=== PATIENT | male | born 1970 | race Caucasian/White ===

== ENCOUNTER 2018-08-25 20:18 | Emergency (ER) | payer OTHER ==
--- NOTE | 2018-08-25 20:26 | PDOC ---
Rapid Medical Evaluation Time Seen by Provider: 08/25/18 20:23 Medical Evaluation: Allergies Allergy/AdvReac Type Severity Reaction Status Date / Time No Known Allergies Allergy Verified 10/20/14 19:45 08/25/18 20:23 I have performed a brief in-person evaluation of this patient. The patient presents with a chief complaint of: Low back pain radiating to leg x 2 months Pertinent physical exam findings:stable I have ordered the following:nothing The patient will proceed to the ED for further evaluation. Discharge Disposition - Diagnosis Lower back pain Qualifiers: Chronicity: unspecified Back pain laterality: unspecified Sciatica presence: unspecified whether sciatica present Qualified Code(s): M54.5 - Low back pain - Referrals - Patient Instructions - Post Discharge Activity
[2018-08-25 20:28] VITALS: BP 147/82; PULSE 77; TEMP 98.4; BMI 27.0
[2018-08-25] MEDS ORDERED: KETOROLAC TROMETHAMINE 60 MG/2 ML VIAL IM ONE (21:46)
[2018-08-25] MEDS ORDERED: KETOROLAC TROMETHAMINE 60 MG/2 ML VIAL ONE (21:50)
--- NOTE | 2018-08-25 21:54 | PDOC ---
History of Present Illness - General Chief Complaint: Pain, Acute Stated Complaint: LEG PAIN Time Seen by Provider: 08/25/18 20:23 History Source: Patient - History of Present Illness Initial Comments: 08/25/18 21:47 Chief complaint: Leg pain Patient is a 47-year-old male with history of hypertension which she states control, not taking his blood pressure medicine as 2 months of back and leg pain. Patient states originally the pain was in his back and the back of his leg , pain now has extended into his groin and pain goes down into his toe, he has some numbness to the toe, but he is also complaining of calf pain. Patient has no shortness of breath or chest pain. Patient was seen at [facility] one month ago but denies having any workup or imaging. Patient did not follow-up with specialist. GENERAL/CONSTITUTIONAL: No fever, weakness. dizziness HEAD, EYES, EARS, NOSE AND THROAT: No change in vision. No ear pain or discharge. No sore throat. CARDIOVASCULAR: No chest pain RESPIRATORY: No shortness of breath or cough GASTROINTESTINAL: No pain, nausea, vomiting, diarrhea or constipation GENITOURINARY: No dysuria MUSCULOSKELETAL: No neck, + back pain SKIN: No rash NEUROLOGIC: No headache, vertigo, loss of consciousness, + decrease sensation to right great toe GENERAL: The patient is awake, alert, and fully oriented, in no acute distress. HEAD: Normal with no signs of trauma. EYES: Pupils equal, round and reactive to light, sclera anicteric, conjunctiva clear. ENT: pharynx: no erythema, no exudate, uvula midline NECK: supple CHEST: clear, nontender, rr ABD: soft, nontender BACK: no tenderness or signs of injury EXTREMITIES: Lower extremity Tenderness in the thigh, calf, to dorsi flex and plantar flexion, decreased sensation to the great toe. rest of extremities, Normal range of motion, no edema. NEUROLOGICAL: Normal speech, Cranial nerves II through XII grossly intact, no gross focal abnormalities, except decreased sensation in the right great toe SKIN: Warm, Dry Past History - Past Medical History Allergies/Adverse Reactions: Allergies Allergy/AdvReac Type Severity Reaction Status Date / Time No Known Allergies Allergy Verified 10/20/14 19:45 Home Medications: Ambulatory Orders NK [No Known Home Medication] 10/20/14 COPD: No HTN: Yes Hypercholesterolemia: Yes - Suicide/Smoking/Psychosocial Hx Smoking History: Former smoker Have you smoked in the past 12 months: No Number of Cigarettes Smoked Daily: 0 If you are a former smoker, when did you quit?: 20 yrs Information on smoking cessation initiated: No Hx Alcohol Use: No Drug/Substance Use Hx: No Substance Use Type: None *Physical Exam - Vital Signs Last Vital Signs Temp Pulse Resp BP Pulse Ox 98.4 F 77 19 147/82 10 L 08/25/18 20:24 08/25/18 20:24 08/25/18 20:24 08/25/18 20:24 08/25/18 20:24 ED Treatment Course - RADIOLOGY Radiology Studies Ordered: Category Date Time Status LUMBAR SPINE CT W/O CONTRAST [CT] Stat CT Scan 08/25/18 21:46 Ordered DUPLEX VASCUL US-1 LEG [US] Stat Ultrasound 08/25/18 21:42 Ordered Medical Decision Making - Medical Decision Making 08/25/18 21:54 47-year-old male with history of hypertension with 2 months of back pain and leg pain to the right lower extremity. Prior visit 1 month ago with no imaging. Given worsening of pain to the leg, thigh and calf, will get ultrasound, we will give Toradol, will get CT lumbar spine and reassess. Patient will be signed out to CHRISTINA Jeong 08/25/18 22:49 us negative for dvt. CHRISTINA Jeong aware. pt signed over to her for review of ct scan , reassessment, pain management and disposition *DC/Admit/Observation/Transfer Diagnosis at time of Disposition: Lower back pain Qualifiers: Chronicity: unspecified Back pain laterality: unspecified Sciatica presence: unspecified whether sciatica present Qualified Code(s): M54.5 - Low back pain - Referrals - Patient Instructions - Post Discharge Activity
--- NOTE | 2018-08-25 22:40 | PDOC ---
*Physical Exam - Vital Signs Last Vital Signs Temp Pulse Resp BP Pulse Ox 98.4 F 77 19 147/82 10 L 08/25/18 20:24 08/25/18 20:24 08/25/18 20:24 08/25/18 20:24 08/25/18 20:24 - Physical Exam Comments: 08/25/18 23:33 Sign-out received from outgoing ER provider Jeanette. Pt interviewed and examined. Ancillary studies reviewed. CT positive for disc herniation at L4-L5. ED Treatment Course - Medications Given in the ED: ED Medications Discontinued Medications Generic Name Dose Route Start Last Admin Trade Name Freq PRN Reason Stop Dose Admin Ketorolac Tromethamine 60 mg 08/25/18 21:46 08/25/18 21:50 Toradol Injection - IM 08/25/18 21:47 60 mg ONCE ONE Administration *DC/Admit/Observation/Transfer Diagnosis at time of Disposition: Disc herniation, Lumbar nerve root impingement Lower back pain Qualifiers: Chronicity: unspecified Back pain laterality: unspecified Sciatica presence: unspecified whether sciatica present Qualified Code(s): M54.5 - Low back pain - Discharge Dispostion Disposition: HOME Condition at time of disposition: Stable Decision to Admit order: No - Prescriptions Prescriptions: Cyclobenzaprine HCl 10 mg PO TID #30 tablet - Referrals Referrals: Luisito Mehta DO [Staff Physician] - - Patient Instructions Printed Discharge Instructions: Herniated Disc, DI for Low Back Pain Additional Instructions: Please take medications as prescribed. Follow up with orthopedics next week for further evaluation and treatment of your back pain. If you develop any loss of sensation to your legs, are unable to walk, loss of bowel or bladder function, or any new or worsening symptoms, please return to the ER immediately. - Post Discharge Activity Forms/Work/School Notes: Back to Work
== END 2018-08-25 23:45 | disposition home or self-care (01) ==
LOC: JERFT 20:18
PROC: 3E0233Z Introduction of Anti-inflammatory into Muscle, Percutaneous Approach (ICD-10-PCS; principal; 2018-08-25)
DX: M54.5 Low back pain (principal); I10 Essential (primary) hypertension; Z87.891 Personal history of nicotine dependence
CPT/HCPCS: 72131-TC; 93971-TC; 96372; 99281-25